=== PATIENT | female | born 1985 | race Asian ===

== ENCOUNTER → 2024-12-31 11:16 | Outpatient (REF) | payer OTHER, SELFPAY | LOC: RAD 11:16 | PROVIDERS: ATTENDING PHYSICIAN Hospitalist | DX: B18.1 Chronic viral hepatitis B without delta-agent (principal); K29.30 Chronic superficial gastritis without bleeding; Z00.01 Encounter for general adult medical examination with abnormal findings; Z12.31 Encounter for screening mammogram for malignant neoplasm of breast; Z13.1 Encounter for screening for diabetes mellitus; Z13.6 Encounter for screening for cardiovascular disorders | CPT/HCPCS: 76700 ==

== ENCOUNTER → 2025-03-06 10:30 | Outpatient (REF) | payer OTHER, SELFPAY | LOC: WDC 10:30 | PROVIDERS: ATTENDING PHYSICIAN Hospitalist | DX: Z12.31 Encounter for screening mammogram for malignant neoplasm of breast (principal) | CPT/HCPCS: 77063; 77067 ==